=== PATIENT | male | born 1935 | race Caucasian/White ===

== ENCOUNTER 2019-12-28 12:43 | Observation (INO) | payer MEDICARE ==
[~2019-12-28] VITALS: Ht 167.6 cm; Wt 75.1 kg
--- NOTE | 2019-12-28 12:46 | NUR ---
BREAK RN: THIS IS AN 84 YO MALE TRANSFERRED VIA AMBULANCE FROM [facility] FOR ST ELEVATION CHANGES NOTED IN EKG AT 1130 AM. PT ORIGINALLY ARRIVED C/O PNA, SOB AND CHEST PRESSRUE X "A FEW DAYS" AND WAS INITIALLY IN AN A-FLUTTER RHYTHM WHICH THEN CHANGED TO ST-ELEVATION IN THE 70'S WITH POSSIBLE A-FIB. IMMIGRATION LAWYER DAYLIN AT BEDSIDE FOR EVAL. DANIELLE BATES AT BEDSIDE FOR EVAL. PT RECEIVED 4,000 UNITS HEPARIN GIVEN AT [facility] UNDERWRITER ALONG WITH 324 MG ASA AND [address] SPR[address] NITRO. PT AO X 4. SKIN PWD. RESP EVEN AND UNLABORED. PT REPORTS PAIN IS 1/10. BILAT IV'S NOTED. CCU RN ROSALINDA AT BEDSIDE FOR CODE CARDIAC. BASS SINGER READY.
--- NOTE | 2019-12-28 12:47 | NUR ---
1150 stemi prealert/garden labourer staff notified 1200 dr cramer paged and spoke with dr izquierdo 1230 dr cramer in er waiting for pt 1235 code cardiac paged 1248 pt arrived to trauma 3 and garden labourer in house and notified pt arrived.
[2019-12-28] MEDS ORDERED: MIDAZOLAM 1 MG/ML, 2ML ONE (12:49)
[2019-12-28] MEDS ORDERED: FENTANYL PF 100 MCG/2ML ONE (12:49)
[2019-12-28] MEDS ORDERED: VERAPAMIL 2.5 MG/ML, 2ML ONE (12:50)
[2019-12-28] MEDS ORDERED: NITROGLYCERIN 5 MG/ML, 10ML ONE (12:50)
[2019-12-28] MEDS ORDERED: BIVALIRUDIN 250 MG ONE (12:50)
[2019-12-28] MEDS ORDERED: LIDOCAINE 1%, 20ML ONE (12:50)
[2019-12-28] MEDS ORDERED: HEPARIN 1,000 UNITS/ML, 10ML ONE (12:50)
--- NOTE | 2019-12-28 13:05 | NUR ---
Pt to laborer tan house at this time.
[2019-12-28] MEDS ORDERED: ALLO300T80 PO (13:12)
[2019-12-28] MEDS ORDERED: METF500T17 PO (13:12)
[2019-12-28] MEDS ORDERED: MAGN250T8 PO (13:12)
[2019-12-28] MEDS ORDERED: ATOR20TA37 PO (13:12)
[2019-12-28] MEDS ORDERED: PRED1TAB19 PO (13:12)
[2019-12-28] MEDS ORDERED: LORA-247 PO (13:12)
[2019-12-28 13:18] LABS: TROPONIN I < 0.015 ng/mL (0.000-0.045)
[2019-12-28] MEDS ORDERED: SODIUM CHLORIDE FLUSH 10ML SYR IVF PRN (13:30)
[2019-12-28] MEDS ORDERED: POLYETHYLENE GLYCOL 17 GM PACKET PO PRN (14:30)
[2019-12-28] MEDS ORDERED: LABETALOL 5MG/ML, 20ML IVPush PRN (14:30)
[2019-12-28] MEDS ORDERED: BISACODYL 10 MG SUPP PR PRN (14:30)
[2019-12-28] MEDS ORDERED: morphine SULFATE 10 MG/ML, 1ML IVPush PRN (14:30)
[2019-12-28] MEDS ORDERED: ACETAMINOPHEN 325 MG TABLET PO PRN (14:30)
[2019-12-28] MEDS ORDERED: ONDANSETRON 2MG/ML, 2ML IVPush PRN (14:30)
[2019-12-28] MEDS ORDERED: OXYcodone IR 5MG TABLET PO PRN (14:30)
[2019-12-28] MEDS ORDERED: ENALAPRILAT 1.25 MG/ML, 2ML IVPush PRN (14:30)
[2019-12-28] MEDS: SODIUM CHLORIDE 0.9% 1,000 ML IV SCH (14:44)
[2019-12-28 15:29] LABS: TROPONIN I < 0.015 ng/mL (0.000-0.045)
[2019-12-28 16:01] VITALS: BP 93/49
[2019-12-28] MEDS: ENOXAPARIN 60 MG/0.6 ML SQ SCH (17:59)
[2019-12-28] MEDS: INSULIN LISPRO 100 UNITS/ML, PEN SQ-INSULIN SCH ×2 (18:01→20:56)
[2019-12-28 18:28] LABS: FREE T4 (FREE THYROXINE) 2.23 ng/dL (0.76-1.46); TROPONIN I < 0.015 ng/mL (0.000-0.045)
[2019-12-28 20:49] LABS: TROPONIN I < 0.015 ng/mL (0.000-0.045)
[2019-12-28] MEDS: ATORVASTATIN 40 MG TABLET PO SCH (20:52)
[2019-12-28] MEDS: AMIODARONE 450 MG in DEXTROSE 5% 241 ML IV PRN (22:52)
[2019-12-28] MEDS ORDERED: FILTER 0.22 MICRON IV PRN (23:00)
[2019-12-29] MEDS: SODIUM CHLORIDE 0.9% 1,000 ML IV SCH ×2 (01:10→16:32)
[2019-12-29] MEDS: ENOXAPARIN 60 MG/0.6 ML SQ SCH (03:09)
[2019-12-29 04:00] VITALS: BP 102/59
[2019-12-29 04:46] LABS: BASOPHILS # (AUTO) 0.03 x10^3/uL (0-0.1); BASOPHILS % (AUTO) 0 % (0-1); EOSINOPHILS # (AUTO) 0.12 x10^3/uL (0-0.4); EOSINOPHILS % (AUTO) 2 % (1-7); LYMPHOCYTES # (AUTO) 1.09 x10^3/uL (1-3.4); LYMPHOCYTES % (AUTO) 14 % (22-44); MD NO; MEAN CORPUSCULAR HEMOGLOBIN 29.3 pg (27.5-34.5); MEAN CORPUSCULAR HGB CONC 32.5 g/dL (33.2-36.2); MEAN CORPUSCULAR VOLUME 90.2 fL (81-97); MEAN PLATELET VOLUME 8.3 fL (7.4-10.4); MONOCYTES # (AUTO) 0.91 x10^3/uL (0.2-0.8); MONOCYTES % (AUTO) 11 % (2-9); NEUTROPHILS # (AUTO) 5.82 x10^3/uL (1.8-6.8); NEUTROPHILS % (AUTO) 73 % (42-75); PLATELET COUNT 161 x10^3/uL (130-400); RED BLOOD COUNT 3.36 x10^6/uL (4.38-5.82); RED CELL DISTRIBUTION WIDTH 15.3 % (9.4-14.8)
[2019-12-29 05:00] LABS: CHLORIDE 111 mmol/L (98-107)
[2019-12-29 05:13] LABS: ALANINE AMINOTRANSFERASE 12 U/L (12-78); ALBUMIN 2.1 g/dL (3.4-5.0); ALKALINE PHOSPHATASE 59 U/L (45-117); ANION GAP 6 mmol/L (5-15); BILIRUBIN,TOTAL 0.5 mg/dL (0.2-1.0); CALCIUM 8.1 mg/dL (8.5-10.1); CHOL/HDL RATIO 2.7; CHOLESTEROL, TOTAL 84 mg/dL (140-239); CREATININE 1.04 mg/dL (0.7-1.3); HDL CHOL % 37 % (26-37); HDL CHOLESTEROL (DIRECT) 31 mg/dL (40-60); LDL CHOLESTEROL,CALCULATED 37 mg/dL (54-169); LDL/HDL RATIO 1.2 (0.5-3.0); TOTAL PROTEIN 6.2 g/dL (6.4-8.2); TRIGLYCERIDES 79 mg/dL (50-200); TROPONIN I 0.037 ng/mL (0.000-0.045); VLDL CHOLESTEROL 16 mg/dL (0-25)
[2019-12-29] MEDS: AMIODARONE 450 MG in DEXTROSE 5% 241 ML IV PRN (05:59)
[2019-12-29] MEDS: ASPIRIN 81 MG TABLET EC PO SCH ×2 (06:00→06:01)
[2019-12-29] MEDS: INSULIN LISPRO 100 UNITS/ML, PEN SQ-INSULIN SCH ×4 (07:00→20:48)
[2019-12-29] MEDS: ALLOPURINOL 300 MG TABLET PO SCH (07:58)
[2019-12-29] MEDS: SENNA/DOCUSATE TABLET PO SCH (07:58)
[2019-12-29] MEDS ORDERED: BENZONATATE 100 MG CAPSULE ONE (09:52)
[2019-12-29] MEDS: BENZONATATE 100 MG CAPSULE PO SCH ×3 (09:53→20:48)
[2019-12-29] MEDS ORDERED: OMNIPAQUE 350 MG/ML, 100ML BOTTLE ONE (15:08)
[2019-12-29] MEDS ORDERED: APAP/CODEINE 300/60MG TABLET PO PRN (15:30)
[2019-12-29] MEDS: ENOXAPARIN 80 MG/0.8 ML SQ SCH (16:25)
[2019-12-29 16:50] VITALS: BP 111/52
[2019-12-29] MEDS: APAP/CODEINE 300/60MG TABLET PO PRN (17:13)
[2019-12-29] MEDS: ATORVASTATIN 40 MG TABLET PO SCH (20:47)
[2019-12-29] MEDS: AMIODARONE 200 MG TABLET PO SCH (20:47)
[2019-12-29 20:50] VITALS: BP 116/67
[2019-12-30 01:29] VITALS: BP 122/68
[2019-12-30] MEDS: SODIUM CHLORIDE 0.9% 1,000 ML IV SCH ×2 (04:00→15:55)
[2019-12-30] MEDS: ENOXAPARIN 80 MG/0.8 ML SQ SCH (06:00)
[2019-12-30] MEDS: ASPIRIN 81 MG TABLET EC PO SCH (06:00)
[2019-12-30] MEDS: INSULIN LISPRO 100 UNITS/ML, PEN SQ-INSULIN SCH ×4 (07:00→20:45)
[2019-12-30 07:25] VITALS: BP 131/62
[2019-12-30] MEDS: APAP/CODEINE 300/60MG TABLET PO PRN ×2 (07:25→15:54)
[2019-12-30] MEDS: BENZONATATE 100 MG CAPSULE PO SCH (08:13)
[2019-12-30 08:14] VITALS: BP 123/68
[2019-12-30] MEDS: SENNA/DOCUSATE TABLET PO SCH (08:14)
[2019-12-30] MEDS: AMIODARONE 200 MG TABLET PO SCH ×2 (08:14→20:44)
[2019-12-30] MEDS: ALLOPURINOL 300 MG TABLET PO SCH (08:14)
[2019-12-30 14:10] VITALS: BP 123/70
[2019-12-30 20:42] VITALS: BP 128/71
[2019-12-30] MEDS: APIXABAN 5 MG TABLET PO SCH (20:44)
[2019-12-30] MEDS: ATORVASTATIN 40 MG TABLET PO SCH (20:44)
[2019-12-31] MEDS: APAP/CODEINE 300/60MG TABLET PO PRN ×2 (01:03→14:54)
[2019-12-31 01:06] VITALS: BP 165/82
[2019-12-31] MEDS: SODIUM CHLORIDE 0.9% 1,000 ML IV SCH (04:35)
[2019-12-31] MEDS: ASPIRIN 81 MG TABLET EC PO SCH (05:41)
[2019-12-31 05:58] LABS: BASOPHILS # (AUTO) 0.05 x10^3/uL (0-0.1); BASOPHILS % (AUTO) 1 % (0-1); EOSINOPHILS # (AUTO) 0.25 x10^3/uL (0-0.4); EOSINOPHILS % (AUTO) 3 % (1-7); LYMPHOCYTES # (AUTO) 1.19 x10^3/uL (1-3.4); LYMPHOCYTES % (AUTO) 14 % (22-44); MD NO; MEAN CORPUSCULAR HEMOGLOBIN 28.6 pg (27.5-34.5); MEAN CORPUSCULAR HGB CONC 31.8 g/dL (33.2-36.2); MEAN CORPUSCULAR VOLUME 89.8 fL (81-97); MEAN PLATELET VOLUME 7.7 fL (7.4-10.4); MONOCYTES # (AUTO) 1.18 x10^3/uL (0.2-0.8); MONOCYTES % (AUTO) 13 % (2-9); NEUTROPHILS # (AUTO) 6.12 x10^3/uL (1.8-6.8); NEUTROPHILS % (AUTO) 70 % (42-75); PLATELET COUNT 182 x10^3/uL (130-400); RED BLOOD COUNT 3.47 x10^6/uL (4.38-5.82); RED CELL DISTRIBUTION WIDTH 15.5 % (9.4-14.8)
[2019-12-31 06:13] LABS: CALCIUM 8.6 mg/dL (8.5-10.1); CHLORIDE 110 mmol/L (98-107)
[2019-12-31 06:16] LABS: ANION GAP 7 mmol/L (5-15); CREATININE 1.32 mg/dL (0.7-1.3)
[2019-12-31] MEDS: INSULIN LISPRO 100 UNITS/ML, PEN SQ-INSULIN SCH ×2 (07:00→12:05)
[2019-12-31 07:49] VITALS: BP 139/81
[2019-12-31] MEDS ORDERED: METOPROLOL SUCCINATE 25 MG TAB.ER.24H PO SCH (08:00)
[2019-12-31] MEDS ORDERED: METOPROLOL SUCCINATE 25 MG TAB.ER.24H ONE (08:23)
[2019-12-31] MEDS: ALLOPURINOL 300 MG TABLET PO SCH (08:27)
[2019-12-31] MEDS: AMIODARONE 200 MG TABLET PO SCH (08:27)
[2019-12-31] MEDS: APIXABAN 5 MG TABLET PO SCH (08:28)
[2019-12-31] MEDS: SENNA/DOCUSATE TABLET PO SCH (08:28)
[2019-12-31 13:44] VITALS: BP 144/73
[2019-12-31] MEDS ORDERED: AMIO200T42 PO (14:52)
[2019-12-31] MEDS ORDERED: METO25TA91 PO (14:52)
[2019-12-31] MEDS ORDERED: ASPI81TA45 PO (14:52)
[2019-12-31] MEDS ORDERED: APIX5TAB PO (14:52)
[2019-12-31] MEDS ORDERED: ATOR40TA78 PO (14:52)
== END 2019-12-31 15:30 | disposition home or self-care (01) ==
LOC: ED 12:59 → EDIP 13:16 → INTOOBSV 13:16 → CCU 14:08 → ICU 12-29 07:24 → 5SO 12-29 16:18 → DCLOUNGE 12-31 15:19
PROVIDERS: ADMIT Internal Medicine; ATTEND Internal Medicine
DX: I25.119 Atherosclerotic heart disease of native coronary artery with unspecified angina pectoris (principal); N17.0 Acute kidney failure with tubular necrosis; D68.69 Other thrombophilia; I48.92 Unspecified atrial flutter; D63.8 Anemia in other chronic diseases classified elsewhere; E11.65 Type 2 diabetes mellitus with hyperglycemia; I10 Essential (primary) hypertension; I48.0 Paroxysmal atrial fibrillation; I77.810 Thoracic aortic ectasia; J98.4 Other disorders of lung; M10.9 Gout, unspecified; M31.6 Other giant cell arteritis; N20.0 Calculus of kidney; Z79.01 Long term (current) use of anticoagulants; Z87.891 Personal history of nicotine dependence; Z79.82 Long term (current) use of aspirin; Z79.4 Long term (current) use of insulin; Z79.899 Other long term (current) drug therapy
CPT/HCPCS: 36415; 71045; 71275; 80048; 80053; 80061; 82962; 84439; 84443; 84481; 84484; 85025; 87081; 93005; 93306; 93454; 93571; 93970; 96372; 99156; 99157; 99285; C1769; C1887; C1894; G0378; J0282; J1644; J1650; J1815; J2250; J3010; J3490; J7030; J7060; J7512; Q9967; 96374; J0583